=== PATIENT | male | born 1965 | race Caucasian/White ===

== ENCOUNTER 2018-05-26 07:30 | Day surgery (SDC) | payer OTHER, MEDICAID ==
[~2018-05-26 07:30] MED LIST: CEFAZOLIN 1 GM INJ; LACTATED RINGER'S 1,000 ML IV
[2018-05-26] MEDS ORDERED: EPINEPHrine 1 MG INJ (07:38)
[2018-05-26] MEDS ORDERED: CARBACHOL 0.01% 1.5 ML OPH INJ (07:39)
[2018-05-26] MEDS ORDERED: TETRACAINE 0.5% 4 ML OPH (07:39)
[2018-05-26] MEDS: CYCLOPENTOLATE 2% 2 ML OPH OPER (08:39)
[2018-05-26] MEDS: LIDOCAINE 3.5% GEL TUBE OPER (08:39)
[2018-05-26] MEDS: MOXIFLOXACIN 0.5% 3 ML OPH OPER (08:39)
[2018-05-26] MEDS: BROMFENAC SODIUM 1.7 ML OPH DROP OPER (08:39)
[2018-05-26] MEDS: TETRACAINE 0.5% 4 ML OPH OPER ×2 (08:39→12:20)
[2018-05-26] MEDS: PHENYLephrine 10% 5 ML OPH OPER (08:40)
[2018-05-26] MEDS: TROPICAMIDE 1% 3 ML OPH OPER (08:43)
[2018-05-26] MEDS ORDERED: ONDANSETRON 4 MG INJ IV (09:00)
[2018-05-26] MEDS ORDERED: hydrALAzine 20 MG INJ IV (09:00)
[2018-05-26] MEDS ORDERED: LABETALOL HCL 20MG INJ IV (09:00)
[2018-05-26] MEDS ORDERED: METOCLOPRAMIDE 10 MG INJ IV (09:00)
[2018-05-26] MEDS ORDERED: TRYPAN BLUE 0.5 ML SYG IO (11:50)
[2018-05-26] MEDS ORDERED: MIDAZOLAM 1 MG/ML 2 ML INJ (11:58)
[2018-05-26] MEDS: LIDOCAINE 1%/EPI 30 ML INJ (12:20)
[2018-05-26] MEDS: TOBRAMYCIN/DEXAMETH 3.5 GM OPH OINT (12:20)
== END 2018-05-26 14:02 | disposition home or self-care (01) ==
LOC: SDS 07:30
DX: H25.22 Age-related cataract, morgagnian type, left eye (principal); I10 Essential (primary) hypertension; E78.5 Hyperlipidemia, unspecified; E11.9 Type 2 diabetes mellitus without complications
CPT/HCPCS: 66984; 82962